=== PATIENT | male | born 1935 | race Caucasian/White ===

== ENCOUNTER 2017-04-13 08:52 | Inpatient (IN) | payer MEDICARE, OTHER ==
[~2017-04-13] VITALS: Ht 182.9 cm; Wt 88.7 kg
[~2017-04-13 08:52] MED LIST: APIX5TAB PO; ASPI-515 PO; DIGO125T6 PO; LISI-167 PO; METO25TA35 PO
[2017-04-13] MEDS ORDERED: TAMS0.4C2 PO (09:16)
[2017-04-13] MEDS ORDERED: METO25TA35 PO (09:16)
[2017-04-13] MEDS ORDERED: RIVA20TA PO (09:16)
[2017-04-13] MEDS ORDERED: SODIUM CHLORIDE 0.9% 1,000 ML IV ONE ×2 (09:22→11:19)
[2017-04-13] MEDS ORDERED: SODIUM CHLORIDE FLUSH 10ML SYR IVF ONE (09:30)
[2017-04-13] MEDS ORDERED: SODIUM CHLORIDE 0.9% 1,000ML IVBOLUS ONE (09:30)
[2017-04-13 09:46] LABS: HEMATOCRIT 38.8 % (39.2-51.8); HEMOGLOBIN 12.9 g/dL (13.7-18.0); WHITE BLOOD COUNT 12.4 x10^3/uL (3.4-10)
[2017-04-13 09:59] LABS: ASPARTATE AMINO TRANSFERASE 8 U/L (15-37); BLOOD UREA NITROGEN 31 mg/dL (7-18)
[2017-04-13] MEDS ORDERED: OMNIPAQUE 350 MG/ML, 100ML BOTTLE ONE (10:24)
[2017-04-13] MEDS ORDERED: CEFTRIAXONE PMX 1GM/50ML 50 ML IVPB ONE (11:00)
[2017-04-13] MEDS ORDERED: METRONIDAZOLE PMX 500MG/100ML 100 ML IVPB ONE (11:00)
[2017-04-13 11:03] LABS: PATH.CAST-FLAG NOT PRESENT; SPERM-FLAG NOT PRESENT; SRC-FLAG NOT PRESENT; XTAL-FLAG NOT PRESENT; YLC-FLAG NOT PRESENT
[2017-04-13] MEDS ORDERED: CEFTRIAXONE PMX 1GM/50ML 50 ML ONE (11:03)
[2017-04-13] MEDS ORDERED: METRONIDAZOLE PMX 500MG/100ML 100 ML ONE (11:28)
[2017-04-13] MEDS ORDERED: SODIUM CHLORIDE FLUSH 10ML SYR IVF PRN (11:30)
[2017-04-13 13:00] VITALS: BP 135/66
[2017-04-13] MEDS ORDERED: ACETAMINOPHEN 325 MG TABLET PO PRN (14:30)
[2017-04-13] MEDS ORDERED: morphine SULFATE 10 MG/ML, 1ML IVPush PRN (14:30)
[2017-04-13] MEDS ORDERED: LABETALOL 5MG/ML, 20ML IVPush PRN (14:30)
[2017-04-13] MEDS ORDERED: BISACODYL 10 MG SUPP PR PRN (14:30)
[2017-04-13] MEDS ORDERED: ONDANSETRON ODT 4 MG PO PRN (14:30)
[2017-04-13] MEDS ORDERED: POLYETHYLENE GLYCOL 17 GM PACKET PO PRN (14:30)
[2017-04-13] MEDS ORDERED: ONDANSETRON 2MG/ML, 2ML IVPush PRN (14:30)
[2017-04-13] MEDS ORDERED: DOCUSATE 100 MG CAPSULE PO PRN (14:30)
[2017-04-13] MEDS: PIPERACILLIN/TAZO/PMX 3.375GM 50 ML IV SCH ×2 (15:50→21:01)
[2017-04-13] MEDS: SODIUM CHLORIDE 0.9% 1,000 ML IV SCH (15:51)
[2017-04-13 19:43] VITALS: BP 139/74
[2017-04-13 21:04] VITALS: BP 136/69
[2017-04-14] MEDS: SODIUM CHLORIDE 0.9% 1,000 ML IV SCH ×3 (00:05→23:00)
[2017-04-14 00:58] VITALS: BP 127/69
[2017-04-14] MEDS: PIPERACILLIN/TAZO/PMX 3.375GM 50 ML IV SCH ×4 (03:40→23:00)
[2017-04-14 05:42] LABS: HEMATOCRIT 35.1 % (39.2-51.8); HEMOGLOBIN 11.7 g/dL (13.7-18.0); WHITE BLOOD COUNT 10.5 x10^3/uL (3.4-10)
[2017-04-14 05:53] LABS: BLOOD UREA NITROGEN 25 mg/dL (7-18)
[2017-04-14 05:58] LABS: ASPARTATE AMINO TRANSFERASE 8 U/L (15-37)
[2017-04-14] MEDS ORDERED: BUPIVACAINE/PF 0.5% ONE (07:12)
[2017-04-14 07:33] VITALS: BP 144/75
[2017-04-14] MEDS ORDERED: MORPHINE SULFATE 4 MG/ML, 1ML ONE (11:08)
[2017-04-14 14:00] VITALS: BP 154/74
[2017-04-14] MEDS ORDERED: FENTANYL PF 500 MCG/10ML ONE (15:56)
[2017-04-14] MEDS ORDERED: BACITRACIN 50,000 UNIT ONE (16:57)
[2017-04-14] MEDS ORDERED: MEPERIDINE/PF 25MG/0.5ML IVPush PRN (17:00)
[2017-04-14] MEDS ORDERED: LABETALOL 5MG/ML, 20ML IV PRN (17:00)
[2017-04-14] MEDS ORDERED: PROMETHAZINE 25 MG/ML, 1ML IV PRN (17:00)
[2017-04-14] MEDS ORDERED: ONDANSETRON 2MG/ML, 2ML IVPush PRN (17:00)
[2017-04-14] MEDS ORDERED: METOPROLOL 1 MG/ML, 5ML IV PRN (17:00)
[2017-04-14] MEDS ORDERED: OXYcodone 5 MG/5 ML ORAL.SOL UDC PO PRN (17:00)
[2017-04-14] MEDS ORDERED: PROPOFOL 10 MG/ML, 20ML ONE (17:15)
[2017-04-14] MEDS ORDERED: ROCURONIUM 10 MG/ML ONE ×2 (17:15)
[2017-04-14] MEDS ORDERED: GLYCOPYRROLATE 0.2MG/1ML, 5ML ONE (17:15)
[2017-04-14] MEDS ORDERED: NEOSTIGMINE 1 MG/ML, 10ML ONE (17:15)
[2017-04-14] MEDS ORDERED: FENTANYL PF 100 MCG/2ML ONE (19:20)
[2017-04-14] MEDS ORDERED: HYDROmorphone 1 MG/ML, 1ML ONE (19:20)
[2017-04-14] MEDS: HYDROmorphone 1 MG/ML, 1ML IV PRN ×2 (19:23→19:32)
[2017-04-14] MEDS: FENTANYL PF 100 MCG/2ML IV PRN ×3 (19:26→19:41)
[2017-04-14 20:45] VITALS: BP 153/76
[2017-04-15 00:30] VITALS: BP 137/74
[2017-04-15] MEDS: PIPERACILLIN/TAZO/PMX 3.375GM 50 ML IV SCH ×4 (04:56→23:25)
[2017-04-15 07:23] VITALS: BP 156/77
[2017-04-15] MEDS: SODIUM CHLORIDE 0.9% 1,000 ML IV SCH ×3 (10:00→23:25)
[2017-04-15] MEDS ORDERED: CALCIUM CARBONATE 500 MG TAB.CHEW PO PRN (11:30)
[2017-04-15 11:59] LABS: HEMATOCRIT 38.4 % (39.2-51.8); HEMOGLOBIN 12.7 g/dL (13.7-18.0); WHITE BLOOD COUNT 12.1 x10^3/uL (3.4-10)
[2017-04-15 12:01] LABS: BLOOD UREA NITROGEN 22 mg/dL (7-18)
[2017-04-15] MEDS ORDERED: VANCOMYCIN PER PHARMACY MC PRN (13:30)
[2017-04-15 14:00] VITALS: BP 156/75
[2017-04-15] MEDS ORDERED: PHARMACOKINETIC CONSULTATION MC ONE (14:00)
[2017-04-15] MEDS ORDERED: PHARMACOKINETIC MONITORING MC PRN (14:00)
[2017-04-15] MEDS: VANCOMYCIN 1,300 MG in SODIUM CHLORIDE 0.9% 250 ML IV SCH (15:19)
[2017-04-15] MEDS: METOPROLOL TARTRATE 25 MG TABLET PO SCH (15:30)
[2017-04-15] MEDS: ENOXAPARIN 40 MG/0.4 ML SQ SCH (16:55)
[2017-04-15] MEDS: FAMOTIDINE 20 MG/2 ML IVPush SCH (17:52)
[2017-04-15 19:02] VITALS: BP 143/71
[2017-04-15] MEDS ORDERED: TEMAZEPAM 15 MG CAPSULE PO PRN (22:00)
[2017-04-16 01:46] VITALS: BP 137/69
[2017-04-16 04:49] LABS: HEMATOCRIT 35.7 % (39.2-51.8); HEMOGLOBIN 11.7 g/dL (13.7-18.0); WHITE BLOOD COUNT 12.6 x10^3/uL (3.4-10)
[2017-04-16 05:08] LABS: BLOOD UREA NITROGEN 26 mg/dL (7-18)
[2017-04-16] MEDS: PIPERACILLIN/TAZO/PMX 3.375GM 50 ML IV SCH ×4 (05:22→22:46)
[2017-04-16] MEDS: METOPROLOL TARTRATE 25 MG TABLET PO SCH ×2 (05:22→17:41)
[2017-04-16 07:12] VITALS: BP 168/75
[2017-04-16] MEDS: TAMSULOSIN 0.4 MG CAP.ER.24H PO SCH (08:25)
[2017-04-16] MEDS: LISINOPRIL 10 MG TABLET PO SCH (08:26)
[2017-04-16] MEDS: FAMOTIDINE 20 MG/2 ML IVPush SCH ×2 (08:27→22:38)
[2017-04-16 13:14] VITALS: BP 163/72
[2017-04-16] MEDS: SODIUM CHLORIDE 0.9% 1,000 ML IV SCH (14:00)
[2017-04-16] MEDS: VANCOMYCIN 1,300 MG in SODIUM CHLORIDE 0.9% 250 ML IV SCH (14:39)
[2017-04-16] MEDS: ENOXAPARIN 40 MG/0.4 ML SQ SCH (16:26)
[2017-04-16 18:36] VITALS: BP 154/73
[2017-04-17 02:55] VITALS: BP 164/75
[2017-04-17] MEDS: SODIUM CHLORIDE 0.9% 1,000 ML IV SCH (03:00)
[2017-04-17 05:23] LABS: HEMOGLOBIN 11.3 g/dL (13.7-18.0); WHITE BLOOD COUNT 13.3 x10^3/uL (3.4-10)
[2017-04-17] MEDS: PIPERACILLIN/TAZO/PMX 3.375GM 50 ML IV SCH ×4 (06:05→22:07)
[2017-04-17] MEDS: METOPROLOL TARTRATE 25 MG TABLET PO SCH ×2 (06:05→17:35)
[2017-04-17 06:59] VITALS: BP 142/76
[2017-04-17] MEDS: FAMOTIDINE 20 MG/2 ML IVPush SCH ×2 (08:50→22:05)
[2017-04-17] MEDS: TAMSULOSIN 0.4 MG CAP.ER.24H PO SCH (08:50)
[2017-04-17] MEDS: LISINOPRIL 10 MG TABLET PO SCH (08:50)
[2017-04-17] MEDS ORDERED: HYDROcodone/APAP 5/325 TABLET PO PRN (11:00)
[2017-04-17 13:26] VITALS: BP 161/68
[2017-04-17] MEDS: VANCOMYCIN 1,300 MG in SODIUM CHLORIDE 0.9% 250 ML IV SCH (14:18)
[2017-04-17] MEDS: ENOXAPARIN 40 MG/0.4 ML SQ SCH (16:11)
[2017-04-17] MEDS ORDERED: LABETALOL 5MG/ML, 20ML IVPush PRN (20:00)
[2017-04-17] MEDS ORDERED: DOCUSATE 100 MG CAPSULE PO PRN (20:00)
[2017-04-17] MEDS ORDERED: VANCOMYCIN PER PHARMACY MC PRN (20:00)
[2017-04-17] MEDS ORDERED: ONDANSETRON 2MG/ML, 2ML IVPush PRN (20:00)
[2017-04-17] MEDS ORDERED: BISACODYL 10 MG SUPP PR PRN (20:00)
[2017-04-17] MEDS ORDERED: POLYETHYLENE GLYCOL 17 GM PACKET PO PRN (20:00)
[2017-04-17 20:27] VITALS: BP 142/75
[2017-04-17] MEDS ORDERED: ACETAMINOPHEN 325 MG TABLET PO PRN (21:58)
[2017-04-18] MEDS: PIPERACILLIN/TAZO/PMX 3.375GM 50 ML IV SCH ×2 (04:02→10:51)
[2017-04-18] MEDS: METOPROLOL TARTRATE 25 MG TABLET PO SCH (04:05)
[2017-04-18 04:15] VITALS: BP 165/71
[2017-04-18] MEDS ORDERED: AMOX1TAB64 PO (07:34)
[2017-04-18 08:20] VITALS: BP 167/94
[2017-04-18] MEDS: FAMOTIDINE 20 MG/2 ML IVPush SCH (08:45)
[2017-04-18] MEDS: LISINOPRIL 10 MG TABLET PO SCH (08:45)
[2017-04-18] MEDS: TAMSULOSIN 0.4 MG CAP.ER.24H PO SCH (08:45)
[2017-04-18 14:00] VITALS: BP 158/75
[2017-04-18] MEDS: VANCOMYCIN 1,300 MG in SODIUM CHLORIDE 0.9% 250 ML IV SCH (14:00)
[2017-04-18] MEDS ORDERED: HYDR-3240 PO (14:04)
[2017-04-18] MEDS ORDERED: LIDO1.8C TP (14:06)
== END 2017-04-18 15:40 | disposition home health service (06) | DRG 907 ==
LOC: ED 11:18 → EDIP 11:19 → ED 11:33 → 3NE 12:28 → 4NOR 04-14 18:20
PROVIDERS: ADMIT Internal Medicine; ATTEND Internal Medicine
PROC: 0DB80ZZ Excision of Small Intestine, Open Approach (ICD-10-PCS; 2017-04-14)
PROC: 0WPF0JZ Removal of Synthetic Substitute from Abdominal Wall, Open Approach (ICD-10-PCS; principal; 2017-04-14 17:00)
DX: T85.79XA Infection and inflammatory reaction due to other internal prosthetic devices, implants and grafts, initial encounter (principal); E43 Unspecified severe protein-calorie malnutrition; E87.2 Acidosis; K63.2 Fistula of intestine; I48.0 Paroxysmal atrial fibrillation; N18.3 Chronic kidney disease, stage 3 (moderate); D64.9 Anemia, unspecified; E78.5 Hyperlipidemia, unspecified; I12.9 Hypertensive chronic kidney disease with stage 1 through stage 4 chronic kidney disease, or unspecified chronic kidney disease; K21.9 Gastro-esophageal reflux disease without esophagitis; Z66 Do not resuscitate; K44.9 Diaphragmatic hernia without obstruction or gangrene; Y83.2 Surgical operation with anastomosis, bypass or graft as the cause of abnormal reaction of the patient, or of later complication, without mention of misadventure at the time of the procedure; Z85.46 Personal history of malignant neoplasm of prostate; Z90.89 Acquired absence of other organs; Z79.01 Long term (current) use of anticoagulants
CPT/HCPCS: 36415; 74177; 80048; 80053; 80202; 81001; 82040; 83605; 83690; 84145; 85025; 85610; 85730; 87015; 87040; 87070; 87075; 87077; 87102; 87116; 87186; 87205; 87206; 88307; 93005; 96360; J0696; J1170; J1650; J2270; J2405; J2543; J2704; J2710; J3010; J3370; J3490; Q0162; Q9967; J7030; J7050; S0028

== ENCOUNTER 2017-04-18 22:19 | Emergency (ER) | payer MEDICARE, OTHER ==
[~2017-04-18] VITALS: Ht 182.9 cm; Wt 88.4 kg
[~2017-04-18 22:19] MED LIST changes: +AMOX1TAB64 PO; +HYDR-3240 PO; +LIDO1.8C TP; +RIVA20TA PO; +TAMS0.4C2 PO
[2017-04-18 22:20] VITALS: BP 177/76
== END 2017-04-18 23:07 | disposition left against medical advice (07) ==
LOC: ED 22:40
DX: Z53.21 Procedure and treatment not carried out due to patient leaving prior to being seen by health care provider (principal)

== ENCOUNTER 2018-06-13 17:33 | Emergency (ER) | payer MEDICARE, OTHER ==
[~2018-06-13] VITALS: Ht 188 cm; Wt 82.4 kg
[~2018-06-13 17:33] MED LIST changes: -DIGO125T6 PO; +DIGO125T81 PO
[2018-06-13] MEDS ORDERED: METOPROLOL TARTRATE 25 MG TABLET PO ONE (18:30)
[2018-06-13 18:32] LABS: INTERNATIONAL NORMALIZED RATIO 1.12 (0.93-1.1); PROTHROMBIN TIME 11.6 Seconds (9.6-11.5)
[2018-06-13 18:34] LABS: ALBUMIN 2.9 g/dL (3.4-5.0); ANION GAP 8 mmol/L (5-15); CALCIUM 8.4 mg/dL (8.5-10.1); CHLORIDE 109 mmol/L (98-107)
[2018-06-13 18:37] LABS: TROPONIN I < 0.015 ng/mL (0.000-0.045)
[2018-06-13 18:39] LABS: ALANINE AMINOTRANSFERASE 24 U/L (12-78); ALKALINE PHOSPHATASE 56 U/L (45-117); BILIRUBIN,TOTAL 0.6 mg/dL (0.2-1.0); CREATININE 1.45 mg/dL (0.7-1.3); TOTAL PROTEIN 6.3 g/dL (6.4-8.2)
[2018-06-13] MEDS ORDERED: METOPROLOL TARTRATE 25 MG TABLET ONE (18:42)
[2018-06-13] MEDS ORDERED: METO25TA35 PO (18:46)
[2018-06-13 18:51] LABS: BASOPHILS # (AUTO) 0.03 x10^3/uL (0-0.1); BASOPHILS % (AUTO) 0 % (0-1); EOSINOPHILS % (AUTO) 1 % (1-7); LYMPHOCYTES # (AUTO) 1.53 x10^3/uL (1-3.4); LYMPHOCYTES % (AUTO) 13 % (22-44); MD NO; MEAN CORPUSCULAR HEMOGLOBIN 31.4 pg (27.5-34.5); MEAN CORPUSCULAR HGB CONC 33.8 g/dL (33.2-36.2); MEAN PLATELET VOLUME 8.2 fL (7.4-10.4); MONOCYTES % (AUTO) 5 % (2-9); NEUTROPHILS # (AUTO) 9.15 x10^3/uL (1.8-6.8); NEUTROPHILS % (AUTO) 80 % (42-75); PLATELET COUNT 241 x10^3/uL (130-400); RED BLOOD COUNT 3.91 x10^6/uL (4.38-5.82); RED CELL DISTRIBUTION WIDTH 14.2 % (9.4-14.8)
[2018-06-13] MEDS ORDERED: SODIUM CHLORIDE 0.9%, 500ML IVBOLUS ONE (19:00)
[2018-06-13] MEDS ORDERED: OMNIPAQUE 350 MG/ML, 100ML BOTTLE ONE (20:37)
[2018-06-13 21:45] VITALS: BP 114/68
== END 2018-06-13 21:46 | disposition home or self-care (01) ==
LOC: ED 18:25
DX: S70.11XA Contusion of right thigh, initial encounter (principal); I48.0 Paroxysmal atrial fibrillation; Z85.46 Personal history of malignant neoplasm of prostate; X58.XXXA Exposure to other specified factors, initial encounter; Y93.89 Activity, other specified; Y92.89 Other specified places as the place of occurrence of the external cause; Y99.8 Other external cause status
CPT/HCPCS: 36415; 71046; 73706; 80053; 83880; 84484; 85025; 85610; 85730; 93005; 96360; 99285; J7040; Q9967

== ENCOUNTER 2018-06-22 14:49 | Emergency (ER) | payer MEDICARE, OTHER ==
[~2018-06-22] VITALS: Ht 182.9 cm; Wt 82.7 kg
[2018-06-22 15:13] LABS: BASOPHILS # (AUTO) 0.01 x10^3/uL (0-0.1); BASOPHILS % (AUTO) 0 % (0-1); EOSINOPHILS # (AUTO) 0.06 x10^3/uL (0-0.4); EOSINOPHILS % (AUTO) 1 % (1-7); LYMPHOCYTES # (AUTO) 1.27 x10^3/uL (1-3.4); LYMPHOCYTES % (AUTO) 12 % (22-44); MD NO; MEAN CORPUSCULAR HEMOGLOBIN 30.6 pg (27.5-34.5); MEAN CORPUSCULAR HGB CONC 32.9 g/dL (33.2-36.2); MEAN PLATELET VOLUME 7.3 fL (7.4-10.4); MONOCYTES # (AUTO) 0.53 x10^3/uL (0.2-0.8); MONOCYTES % (AUTO) 5 % (2-9); NEUTROPHILS # (AUTO) 9.13 x10^3/uL (1.8-6.8); NEUTROPHILS % (AUTO) 83 % (42-75); PLATELET COUNT 343 x10^3/uL (130-400); RED BLOOD COUNT 4.09 x10^6/uL (4.38-5.82)
[2018-06-22 15:23] LABS: ALBUMIN 3.4 g/dL (3.4-5.0); ANION GAP 9 mmol/L (5-15); CALCIUM 8.8 mg/dL (8.5-10.1); CHLORIDE 107 mmol/L (98-107); CREATININE 1.47 mg/dL (0.7-1.3)
[2018-06-22 15:35] LABS: INTERNATIONAL NORMALIZED RATIO 0.97 (0.93-1.1); PROTHROMBIN TIME 10.3 Seconds (9.6-11.5)
[2018-06-22 17:18] VITALS: BP 139/66
== END 2018-06-22 17:21 | disposition home or self-care (01) ==
LOC: ED 15:40
DX: S70.01XA Contusion of right hip, initial encounter (principal); I48.91 Unspecified atrial fibrillation; M19.90 Unspecified osteoarthritis, unspecified site; Z85.46 Personal history of malignant neoplasm of prostate; X58.XXXA Exposure to other specified factors, initial encounter; Y93.89 Activity, other specified; Y92.89 Other specified places as the place of occurrence of the external cause; Y99.8 Other external cause status
CPT/HCPCS: 36415; 80048; 82040; 85025; 85610; 85730; 99284

== ENCOUNTER 2018-09-20 08:57 | Day surgery (SDC) | payer MEDICARE, OTHER ==
[~2018-09-20] VITALS: Ht 182.9 cm; Wt 79.4 kg
[2018-09-20] MEDS ORDERED: LACTATED RINGERS 1,000 ML IV SCH (09:37)
[2018-09-20 09:41] VITALS: BP 169/90
[2018-09-20 09:52] VITALS: BP 169/90
[2018-09-20 10:41] LABS: ALANINE AMINOTRANSFERASE 18 U/L (12-78); ALBUMIN 2.9 g/dL (3.4-5.0); ANION GAP 5 mmol/L (5-15); CALCIUM 8.5 mg/dL (8.5-10.1); CHLORIDE 109 mmol/L (98-107); CREATININE 1.51 mg/dL (0.7-1.3)
[2018-09-20 10:44] LABS: ALKALINE PHOSPHATASE 65 U/L (45-117); BILIRUBIN,TOTAL 0.4 mg/dL (0.2-1.0); TOTAL PROTEIN 6.7 g/dL (6.4-8.2)
[2018-09-20] MEDS ORDERED: FENTANYL PF 100 MCG/2ML ONE (10:52)
[2018-09-20] MEDS ORDERED: MIDAZOLAM 1 MG/ML, 2ML ONE (10:52)
[2018-09-20] MEDS ORDERED: EPHEDRINE 50 MG/ML, 1ML ONE (11:07)
[2018-09-20] MEDS ORDERED: ONDANSETRON 2MG/ML, 2ML ONE (11:07)
[2018-09-20] MEDS ORDERED: PROPOFOL 10 MG/ML, 20ML ONE (11:07)
[2018-09-20] MEDS ORDERED: DEXAMETHASONE 4 MG/ML, 1ML ONE (11:07)
[2018-09-20] MEDS ORDERED: OMNIPAQUE 350 MG/ML, 50 ML BOTTLE IV ONE (11:28)
[2018-09-20] MEDS ORDERED: PROMETHAZINE 25 MG/ML, 1ML IV PRN (11:30)
[2018-09-20] MEDS ORDERED: LABETALOL 5MG/ML, 20ML IV PRN (11:30)
[2018-09-20] MEDS ORDERED: ALBUTEROL SULFATE 2.5 MG/3 ML NPPB PRN (11:30)
[2018-09-20] MEDS ORDERED: HALOPERIDOL 5 MG/ML IV PRN (11:30)
[2018-09-20] MEDS ORDERED: FENTANYL PF 100 MCG/2ML IV PRN (11:30)
[2018-09-20] MEDS ORDERED: HYDROmorphone 2 MG/ML, 1ML IVPush PRN (11:30)
[2018-09-20] MEDS ORDERED: hydrALAzine 20 MG/ML, 1ML IV PRN (11:30)
== END 2018-09-20 14:20 | disposition home or self-care (01) ==
LOC: OUT 08:57
PROVIDERS: ATTEND Urology
DX: N35.013 Post-traumatic anterior urethral stricture (principal); I48.91 Unspecified atrial fibrillation; I10 Essential (primary) hypertension; Z98.890 Other specified postprocedural states
CPT/HCPCS: 36415; 52281; 74450; 80053; 93005; C1769; J1100; J2405; J2704; J3010; J7120; Q9967; J2250

== ENCOUNTER 2018-12-30 13:20 | Outpatient (CLI) | payer MEDICARE, OTHER ==
[2018-12-30] MEDS ORDERED: CALCIUM PO (14:44)
[2018-12-30] MEDS ORDERED: VIT PO (14:44)
[2018-12-30] MEDS ORDERED: VITAMIN B12 PO (14:44)
[2018-12-30] MEDS ORDERED: BUSP5TAB2 PO (14:44)
[2018-12-30] MEDS ORDERED: MAG PO (14:44)
[2018-12-30] MEDS ORDERED: ESZO2TAB22 PO (14:44)
[2018-12-30 14:56] LABS: MICROSCOPIC AUTO
[2018-12-30 15:04] LABS: ALBUMIN 3.1 g/dL (3.4-5.0); ANION GAP 4 mmol/L (5-15); CALCIUM 8.6 mg/dL (8.5-10.1); CHLORIDE 106 mmol/L (98-107)
[2018-12-30 15:07] LABS: ALANINE AMINOTRANSFERASE 18 U/L (12-78); ALKALINE PHOSPHATASE 69 U/L (45-117); BILIRUBIN,TOTAL 0.5 mg/dL (0.2-1.0); TOTAL PROTEIN 6.8 g/dL (6.4-8.2)
== END 2018-12-30 23:59 | disposition home or self-care (01) ==
LOC: STAR 13:20
PROVIDERS: ATTEND Urology
DX: Z01.818 Encounter for other preprocedural examination (principal); N13.5 Crossing vessel and stricture of ureter without hydronephrosis
CPT/HCPCS: 36415; 80053; 81001; 87086

== ENCOUNTER 2019-01-03 11:59 | Day surgery (SDC) | payer MEDICARE, OTHER ==
[~2019-01-03] VITALS: Ht 182.9 cm; Wt 58.0 kg
[~2019-01-03 11:59] MED LIST changes: +BUSP5TAB2 PO; +CALCIUM PO; +ESZO2TAB22 PO; +MAG PO; +VIT PO; +VITAMIN B12 PO
[2019-01-03] MEDS ORDERED: LACTATED RINGERS 1,000 ML IV SCH (12:14)
[2019-01-03 12:28] VITALS: BP 138/72
[2019-01-03] MEDS ORDERED: FENTANYL PF 250 MCG/5ML ONE (14:00)
[2019-01-03] MEDS ORDERED: PROPOFOL 50 ML ONE (14:01)
[2019-01-03] MEDS ORDERED: CEFAZOLIN 1,000 MG ONE ×2 (14:03)
[2019-01-03] MEDS ORDERED: PROPOFOL 10 MG/ML, 20ML ONE (14:04)
[2019-01-03] MEDS ORDERED: DEXMEDETOMIDINE 200 MCG/2 ML ONE (14:13)
[2019-01-03] MEDS ORDERED: PHENYLEPHRINE 10 MG/ML ONE (14:20)
[2019-01-03] MEDS ORDERED: ONDANSETRON 2MG/ML, 2ML ONE ×2 (14:37)
[2019-01-03] MEDS ORDERED: ACETAMINOPHEN 325 MG TABLET PO PRN (15:00)
[2019-01-03] MEDS ORDERED: HALOPERIDOL 5 MG/ML IV PRN (15:00)
[2019-01-03] MEDS ORDERED: HYDROcodone/APAP 7.5-325MG/15ML UDC PO PRN (15:00)
[2019-01-03] MEDS ORDERED: FENTANYL PF 100 MCG/2ML IV PRN (15:00)
[2019-01-03] MEDS ORDERED: hydrALAzine 20 MG/ML, 1ML IV PRN (15:00)
[2019-01-03] MEDS ORDERED: HYDROmorphone 2 MG/ML, 1ML IVPush PRN (15:00)
[2019-01-03] MEDS ORDERED: PROMETHAZINE 25 MG/ML, 1ML IV PRN (15:00)
== END 2019-01-03 18:20 | disposition home or self-care (01) ==
LOC: OUT 11:59
PROVIDERS: ATTEND Urology
DX: N35.812 Other bulbous urethral stricture, male (principal); I48.91 Unspecified atrial fibrillation; I35.1 Nonrheumatic aortic (valve) insufficiency; I34.0 Nonrheumatic mitral (valve) insufficiency; I26.99 Other pulmonary embolism without acute cor pulmonale; C61 Malignant neoplasm of prostate; E78.5 Hyperlipidemia, unspecified; E87.1 Hypo-osmolality and hyponatremia; H21.561 Pupillary abnormality, right eye; Z98.42 Cataract extraction status, left eye; Z98.41 Cataract extraction status, right eye; Z96.651 Presence of right artificial knee joint; Z98.890 Other specified postprocedural states; Z96.1 Presence of intraocular lens
CPT/HCPCS: 52281; C1769; J0690; J2370; J2405; J2704; J3010; J7120